=== PATIENT | female | born 1975 | race Two or more races ===

== ENCOUNTER → 2022-05-21 | Emergency (ER) | payer OTHER ==
[~2022-05-21] VITALS: Ht 162.6 cm; Wt 78.0 kg
[~2022-05-21] MED LIST: AMLODIPINE-OLM1 EAC2 PO; KETO10TA2 PO
== END | disposition home or self-care (01) ==
LOC: ER 12:05
DX: N94.6 Dysmenorrhea, unspecified (principal); D25.9 Leiomyoma of uterus, unspecified; Z88.8 Allergy status to other drugs, medicaments and biological substances